=== PATIENT | female | born 1950 | race Caucasian/White ===

== ENCOUNTER → 2018-09-17 10:43 | Outpatient (CLI) | payer MEDICARE | END | disposition home or self-care (01) | LOC: D.US 10:43 | PROVIDERS: ATTEND Family Medicine | DX: I15.0 Renovascular hypertension (principal) ==

== ENCOUNTER 2019-11-13 21:31 | Emergency (ER) | payer MEDICARE ==
[~2019-11-13] VITALS: Ht 165.1 cm; Wt 61.4 kg
[2019-11-13 21:38] VITALS: Ht 165.1 cm; Wt 61.4 kg
[2019-11-13 22:48] LABS: TROPONIN-I < 0.017 ng/mL (0.000-0.060)
[2019-11-13 23:51] VITALS: BP 174/80
== END 2019-11-13 23:45 | disposition home or self-care (01) ==
LOC: D.ER 21:31
PROVIDERS: Surgery
DX: R55 Syncope and collapse (principal); R06.02 Shortness of breath; I10 Essential (primary) hypertension; Z72.0 Tobacco use

== ENCOUNTER 2020-04-01 02:47 | Inpatient (IN) | payer MEDICARE ==
[~2020-04-01] VITALS: Ht 162.6 cm; Wt 66.8 kg
--- NOTE | ~2020-04-01 | HEMODYNAMI ---
PATIENT:HARPAL BILL MEDICAL RECORD: [id number] : 48 LOCATION:[facility] D.[address] [facility]# [id number] ADMISSION DATE: 04/02/20 Generatedon:04/03/202011:58 Patient name: HARPAL BILL Patient #: [id number] SSN: [id number] : 1950 Date of study: 04/03/2020 Page: Of Hemodynamic Procedure Report Patient Data Patient Demographics Procedure consent was obtained First Name: HARPAL Gender: Female Last Name: LANDY : 1950 [facility] Initial: J Age: 69 year(s) Patient #: [id number] Race: SSN: [id number] Additional ID: [id number] Contact details Address: [place] [address] State: [place] City: [place] Zip code: [address] Past Medical History Allergies Allergen Reaction Date Comments Reported Other allergy 04/03/2020 Admission Admission Data Admission Date: 04/02/2020 Admission Time: 17:31 Arrival Date: 04/03/2020 Arrival Time: 0:00 Admit Source: Other Insurance Payor: Private Room #: D.2120 health insurance [facility] #: [id number] Height (in.): 64 BSA: 1.72 (m2) Height (cm.): 162.56 BMI: 25.28 (kg/m2) Weight (lbs.): 147.29 Weight (kg.): 66.81 Lab Results Lab Result Date: 04/03/2020 Lab Result Time: 0:00 Biochemistry Name Units Result Min Max BUN mg/dl 16 --(---*)-- 7 18 Creatinine mg/dl 1 --(--*-)-- 0.6 1.3 eGFR ml/min 58 *-(----)-- 90 120 NONAFRICAN CBC Name Units Result Min Max Hematocrit % 35.9 *-(----)-- 42 54 Hemoglobin g/dl 12 *-(----)-- 13.5 17.5 Procedure Procedure Types Cath Procedure Diagnostic Procedure [facility] w/Coronaries Sedation Charges Moderate Sedation up to 30 minutes Peripheral Cath Diagnostic Procedure Deaf Teacher Peripheral Procedures Four Vessel Arteriogram Procedure Description Procedure Date Procedure Date: 04/03/2020 Procedure Start Time: 11:10 Procedure End Time: 11:30 Procedure Staff Name Function Pily Adolfo RT Scrub Juan Oneal MD Performing Physician Debo Huynh RN Nurse Kirsty Mckenzie RT Monitor Procedure Data Cath Procedure Fluoroscopy Diagnostic fluoroscopy Total fluoroscopy Time: 3.8 time: 3.8 min min Diagnostic fluoroscopy Total fluoroscopy dose: 632 dose: 632 mGy mGy Contrast Material Contrast Material Type Amount (ml) Isovue 370 132 Entry Location Entry Primary Successful Side Size Upsize Upsize Entry Closure Succes sful Closure Location (Fr) 1 (Fr) 2 (Fr) Remarks Device Remarks Femoral Right 5 Fr 6 Fr Exoseal artery Short Estimated blood loss: 10 ml Diagnostic catheters Device Type Used For End Catheter Placement MULTIPACK JL 4.0 5Fr Procedure catheter MULTIPACK 3DRC 5Fr Procedure catheter MULTIPACK Pigtail 5 Fr Procedure catheter Procedure Complications No complications Procedure Medications Medication Administration Route Dosage 0.9% NaCl I.V. 100 ml/hr Lidocaine 2% added to field 20 Heparin Flush Bag added to field 2 bags (1000units/500ml NS) Oxygen NC 2 l/min Benadryl I.V. 50 mg Versed I.V. 1 mg Fentanyl I.V. 50 mcg Versed I.V. 1 mg Fentanyl I.V. 50 mcg Versed I.V. 1 mg Fentanyl I.V. 50 mcg Heparin Bolus I.V. 4000 units Integrilin (Bolus I.V. 6.2 ml 2mg/ml) Plavix P.O. 600 mg Hemodynamics Rest HGB: 12 (g/dl) O2 Consumption: Estimated: 158.69 (ml/min) O2 Consumption indexed : Estimated:92.26 (ml/min/m) Heart Rate: 70 (bpm) Pressure Samples Time Site Value (mmHg) Purpose Heart Use Rate(bpm) 11:18 LV 196/28,34 Snapshot 79 Gradients Valve Time Site Site Mean SEP/DFP Peak To Heart Use 1 2 (mmHg) (sec/min) Peak Rate (mmHg) (bpm) Aortic 11:19 LV AO 80 Snapshots Pre Cath Intra NCS Post Cath Vital Signs Time Heart Resp SPO2 etCO2 NIBP (mmHg) Rhythm Pain Sedation Rate (ipm) (%) (mmHg) Status Level (bpm) 9:26:36 72 23 100 29.5 Measuring NSR 0 (11) 10(A) , No pain 9:27:34 74 23 100 22.7 187/80(112) NSR 0 (11) 10(A) , No pain 9:32:02 71 21 100 29.5 185/79(118) NSR 0 (11) 10(A) , No pain 9:36:26 72 19 100 32.5 179/81(115) NSR 0 (11) 10(A) , No pain 9:40:50 77 19 100 32.5 171/77(118) NSR 0 (11) 10(A) , No pain 9:45:13 81 11 100 37.1 173/78(120) NSR 0 (11) 10(A) , No pain 9:49:35 74 21 100 43.9 157/80(125) NSR 0 (11) 10(A) , No pain 9:53:49 80 19 100 40.1 160/81(116) NSR 0 (11) 10(A) , No pain 9:58:07 77 14 100 37.1 161/78(105) NSR 0 (11) 10(A) , No pain 10:02:25 73 13 100 39.3 160/76(105) NSR 0 (11) 10(A) , No pain 10:06:45 73 15 100 34.8 163/74(111) NSR 0 (11) 10(A) , No pain 10:11:07 72 14 100 36.3 159/73(104) NSR 0 (11) 10(A) , No pain 10:15:25 71 14 100 36.3 165/76(104) NSR 0 (11) 10(A) , No pain 10:19:45 72 14 100 36.3 156/76(101) NSR 0 (11) 10(A) , No pain 10:24:03 69 14 100 27.2 162/73(101) NSR 0 (11) 10(A) , No pain 10:28:25 71 15 100 34.8 160/71(92) NSR 0 (11) 10(A) , No pain 10:32:46 69 14 100 39.3 158/73(103) NSR 0 (11) 10(A) , No pain 10:37:06 69 15 100 34.7 156/75(106) NSR 0 (11) 10(A) , No pain 10:41:24 68 14 100 35.6 160/75(100) NSR 0 (11) 10(A) , No pain 10:45:42 66 14 100 36.3 164/76(105) NSR 0 (11) 10(A) , No pain 10:50:04 69 13 100 35.5 161/72(108) NSR 0 (11) 10(A) , No pain 10:54:00 75 6 100 34.8 126/90(101) NSR 0 (11) 10(A) , No pain 10:58:59 70 14 100 36.3 Measuring NSR 0 (11) 10(A) , No pain 10:59:09 69 14 100 35.5 146/68(100) NSR 0 (11) 10(A) , No pain 11:03:25 74 13 100 37.1 143/67(92) NSR 0 (11) 10(A) , No pain 11:07:37 71 12 99 37.1 156/79(111) NSR 0 (11) 9(A) , No pain 11:11:55 74 5 100 37.1 171/74(122) NSR 0 (11) 9(A) , No pain 11:16:19 86 12 99 40.8 167/75(107) NSR 0 (11) 9(A) , No pain 11:20:39 79 11 100 40.1 160/74(104) NSR 0 (11) 9(A) , No pain 11:25:02 81 9 100 39.3 170/70(104) NSR 0 (11) 9(A) , No pain 11:29:28 85 11 100 37.1 167/64(120) NSR 0 (11) 10(A) , No pain Medications Time Medication Route Dose Verified Delivered Reason Notes Effectiveness by by 9:25:54 0.9% NaCl I.V. 100 Juan Edmondson used for ml/hr St Sudhir Huynh procedure RN 9:26:07 Lidocaine 2% added 20ml Juan Debo for sedation to vial Viola Amina rees MD, RN 9:26:19 Heparin Flush added 2 Juan Debo used for Bag to bags Viola Amina procedure (1000units/500ml field CHEATHAM RN NS) 9:26:35 Oxygen NC 2 Juan Debo for low 02 sats l/min St Sudhir Huynh MD, RN 9:30:09 Benadryl I.V. 50 mg Juan Debo used for Viola Amina procedure MD BURNS 11:02:00 Fentanyl I.V. 50 Juan Debo for sedation mcg St Sudhir Huynh MD, RN 11:02:28 Versed I.V. 1 mg Juan Debo for sedation St Sudhir Huynh MD RN 11:07:28 Versed I.V. 1 mg Juan Debo for sedation St Sudhir Huynh MD, RN 11:07:32 Fentanyl I.V. 50 Juan Debo for sedation mcg St Sudhir Huynh MD, RN 11:13:30 Versed I.V. 1 mg Juan Debo for sedation St Sudhir Huynh MD, RN 11:13:33 Fentanyl I.V. 50 Juan Debo for sedation mcg St Sudhir Huynh MD, RN 11:21:30 Heparin Bolus I.V. 4000 Juan Edmondson verifi ed units [facility] with dr CHEATHAM RN victoria 11:31:14 Integrilin I.V. 6.2 Juan Debo for 3.8 ml (Bolus 2mg/ml) ml Viola Amina anticoagulation wasted MD BURNS 11:31:40 Plavix P.O. 600 Juan Edmondson for mg Viola Amina anticoagulation manager medicare marketing Log Time Note 8:54:09 Informed consent obtained and on chart 8:56:56 Lab Result : Hemoglobin 12 g/dl 8:56:56 Lab Result : Hematocrit 35.9 % 8:56:56 Lab Result : eGFR NONAFRICAN 58 ml/min 8:56:56 Lab Result : BUN 16 mg/dl 8:56:56 Lab Result : Creatinine 1 mg/dl 8:57:37 Arrival Date: 04/03/2020 12:00:00 AM 8:57:38 Admit Source: Other 8:57:39 Insurance Payor : Private health insurance 9:01:07 Patient Height : 64 inches 9:01:32 Patient Weight : 147.29 lbs 9:06:20 Diagnostic Cath Status : Urgent 9:06:39 ACC Patient presents with Stable Angina CCS Anginal Class 2--Slight limitation of ordinary activity. 9:06:43 Procedure Status Urgent Heart Cath (IP). 9:06:45 Time tracking: Regular hours (M-F 7:00 - 5:00) 9:06:50 Plan of Care:Hemodynamics will remain stable., Cardiac rhythm will remain stable., Comfort level will be maintained., Respiratory function will remain adequate., Patient/ family verbilizes understanding of procedure., Procedure tolerated without complication., Recovers from procedure without complications.. 9:06:57 H&P Date Dictated: 04/02/2020 Within 30 days and on chart.. 9:07:02 Patient NPO since Midnight. 9:07:09 Lab results completed and on chart. 9:07:12 Stress Test: no; N/A ? 9:07:15 Sharps counted by scrub and verified by R.N. 9:07:15 Alarms reviewed by R. N. 9:15:00 Pily BROWN(R) sent for patient. Start room use. 9:24:48 Vital chart was started 9:25:54 0.9% NaCl 100 ml/hr I.V. was administered by Debo Huynh RN; used for procedure; Verbal order read back and verified. 9:26:07 Lidocaine 2% 20ml vial added to field was administered by Debo Huynh RN; for sedation; Verbal order read back and verified. 9:26:19 Heparin Flush Bag (1000units/500ml NS) 2 bags added to field was administered by Debo Huynh RN; used for procedure; Verbal order read back and verified. 9:26:35 Oxygen 2 l/min NC was administered by Debo Huynh RN; for low 02 sats; Verbal order read back and verified. 9:30:09 Benadryl 50 mg I.V. was administered by Debo Huynh RN; used for procedure; Verbal order read back and verified. 9:30:23 Patient received from Med II to CCL 2 Alert and oriented. Tansferred to table in Supine position. 9:30:25 Warm blankets applied, and lissa hugger turned on for patient comfort. 9:30:26 ECG and BP/O2 sat monitors applied to patient. 9:30:26 Correct patient and procedure confirmed by team. 9:30:28 Full Disclosure recording started 9:30:30 Pre-op teaching completed and patient verbalized understanding. 9:30:30 Pre-procedure instructions explained to patient. 9:30:34 Family in patients room. 9:30:44 Patient allergic to Other allergy 9:31:02 Is the patient allergic to Iodine/contrast media? No. 9:31:04 Was the patient premedicated? No 9:31:05 Is patient on blood thinner?Yes 9:31:16 pt is on aspirin daily.. 9:31:24 Patient diabetic? No. 9:31:27 If diabetic: On Metformin? N/A 9:31:32 Patient not . Patient is over age 55. 9:31:33 ----Pre-sedation anethsthesia assessment.---- 9:31:42 Previous problem with sedation/anesthesia? No ? 9:31:43 Snore? Yes 9:31:45 Sleep apnea? No 9:31:47 Deviated septum? No 9:31:48 Opens mouth fully? Yes 9:31:49 Sticks out tongue? Yes 9:31:52 Airway obstruction? No ? 9:31:53 Dentures? No ? 9:31:57 Pre procedure: right dorsailis pedis pulse 2+ Normal; easily identifiable; not easily obliterated 9:32:02 Patient pain scale 0/10 ?. 9:32:16 IV patent on arrival in left forearm with 0.9% NaCl at KVO. 9:32:22 Right groin area was prepped with chlora-prep and draped in sterile fashion 9:32:27 Baseline sample Acquired. 9:32:31 Rhythm: sinus rhythm 9:32:38 Use device set Femoral Dx 9:32:40 ACIST Syringe (58016) opened to sterile field. 9:32:41 Medline Cath Pack ([id number]) opened to sterile field. 9:32:41 Bag Decanter () opened to sterile field. 9:32:42 ACIST Hand Control (65586) opened to sterile field. 9:32:43 ACIST Manifold (99759) opened to sterile field. 9:32:44 SHEATH 5FR Hay (RSH058) opened to sterile field. 9:32:44 DIAGNOSTIC Multipack 5Fr catheter set ([id number]) opened to sterile field. 9:32:45 EMERALD Guide Wire (810-770) opened to sterile field. 11:00:00 Procedure delayed due to: other procedure that was unexpected delays in the procedure 11::17 Final Timeout: patient, procedure, and site verified with staff and physician. All members of the team are in agreement. ::17 --------ALL STOP TIME OUT------ 11:01:20 Right groin site verified by team. 11:01:24 Fire Safety Assessment: A--An alcohol-based skin anteseptic being used preoperatively., C--Open oxygen or nitrous oxide is being used., D--An ESU, laser, or fiber-optic light is being used. 11:01:27 Physical assessment completed. ASA score P 2 - A patient with mild systemic disease as per Juan Oneal MD. 11:01:31 3a) 45-59 Moderately reduced kidney function. 11:01:34 Maximum allowable contrast dose (3.7 X eGFR X 0.75)161 ml. 11:01:39 Sedation plan: IV Moderate Sedation Medication:Versed, Fentanyl 11:02:00 Fentanyl 50 mcg I.V. was administered by Debo Huynh RN; for sedation; Verbal order read back and verified. 11:02:28 Versed 1 mg I.V. was administered by Debo Huynh RN; for sedation; Verbal order read back and verified. 11:07:28 Versed 1 mg I.V. was administered by Debo Huynh RN; for sedation; Verbal order read back and verified. 11:07:32 Fentanyl 50 mcg I.V. was administered by Debo Huynh RN; for sedation; Verbal order read back and verified. 11:09:56 Procedure started. 11:10:00 Local anesthetic to right femoral artery with Lidocaine 2% by Juan Oneal MD.INITIAL ACCESS ONLY 11:11:18 JWIRE INSERTED TO GAIN ACCESS WITH SHEATH. 11:11:40 A 5 Fr sheath was inserted into the Right Femoral artery 11:12:03 A MULTIPACK JL 4.0 5Fr catheter was advanced over the wire and used for Procedure. 11:13:30 Versed 1 mg I.V. was administered by Debo Huynh RN; for sedation; Verbal order read back and verified. 11:13:32 LCA angiography performed. 11:13:33 Fentanyl 50 mcg I.V. was administered by Debo Huynh RN; for sedation; Verbal order read back and verified. 11:13:35 Injector settings: Ml/sec: 3, Volume: 6, 11:14:27 Catheter removed. 11:14:33 A MULTIPACK 3DRC 5Fr catheter was advanced over the wire and used for Procedure. 11:15:21 RCA angiography performed. 11:15:24 Injector settings: Ml/sec: 3, Volume: 6, 11:16:39 Right carotid angiography performed. 11:16:41 Left carotid angiography performed. 11:17:49 Left subclavian angiography performed 11:17:53 Left vertibrle L angiography performed. 11:18:33 Catheter exchanged over wire. 11:18:38 A MULTIPACK Pigtail 5 Fr catheter was advanced over the wire and used for Procedure. 11:18:57 LV gram done using MORELAND 11:19:01 Injector settings: Ml/sec: 10, Volume: 20, 11:19:05 LV hemodynamics recorded. 11:19:13 EF : 55 % 11:19:16 Catheter removed. 11:19:24 Use device set RICHFIELD PCI 11:19:25 SHEATH 6FR Hay (RAV834) opened to sterile field. 11:19:26 INFLATOR Merit BasixCompak (LC9705) opened to sterile field. 11:19:36 BMW 300cm [place] 2 J wire ([id number]) opened to sterile field. 11:19:42 ACC Pre-intervention ALYSSA Flow is 3. 11:19:46 Pre PCI Site: [place] pLAD has 80% stenosis. 11:19:53 Sheath upsized to a 6 Fr Short. 11:20:42 GUIDE 6FR XBLAD 3.5 catheter ([id number]) opened to sterile field. 11:21:12 6 Fr xblad 3.5 guide catheter was inserted over the wire 11:21:24 BMW 300 wire advanced. 11:21:30 Heparin Bolus 4000 units I.V. was administered by Debo Huynh RN; ; verified with dr oneal Verbal order read back and verified. 11:23:13 Wire advanced across lesion. 11:25:31 Place stent Inflation Number: 1 A COURTNEY RX 2.5 x 15 stent ([id number]) was prepped and advanced across the Mid LAD 80. The stent was deployed at 14 CORETTA for 0:00 (min:sec) . 11::43 EXOSEAL 6Fr (EX600) opened to sterile field. 11::48 Wire removed. 11::48 Stent catheter was removed intact over wire. 11::49 Guide catheter removed. 11:27:05 Sheath removed intact; hemostasis achieved with Exoseal to the Right Femoral artery. 11:27:08 Procedure ended.(Physican Out) ::30 Fluoroscopy time 03.80 minutes. ::33 Fluoroscopy dose: 632 mGy 11::33 Flurop Dose total: 632 11::43 Dose Area Product 79642 mGy/cm. 11::47 Contrast amount:Isovue 370 132ml. 11:27:50 Maximum allowable dose exceeded? No. 11::51 Sharps counted by scrub and verified by R.N. 11:28:00 Post Procedure Pulses reassessed and unchanged 11:28:05 Post procedure: right dorsailis pedis pulse 2+ Normal; easily identifiable; not easily obliterated. 11:28:11 Post-procedure physical assessment completed. ASA score P 2 - A patient with mild systemic disease as per Juan Oneal MD. 11:28:14 Post procedure rhythm: unchanged. 11::19 Estimated blood loss: 10 ml 11::53 Post procedure instruction explained to patient.Patient verbalizes understanding. 11::54 Patient needs reinforcement of post procedure teaching. 11:30:12 Procedure type changed to Cath procedure, Diagnostic procedure, LHC, LHC w/Coronaries, Sedation Charges, Moderate Sedation up to 30 minutes, Peripheral Cath Diagnostic Procedure, Deaf Teacher Peripheral Procedures, Four Vessel Arteriogram 11::14 Procedure and supply charges have been captured, reviewed, submitted and are correct. 11::19 Procedure Complication : No complications 11::23 Vital chart was stopped 11::26 [facility] Findings: MVD- PCI performed (see procedure note) :: ACT drawn and resulted at out fo range seconds. (normal therapeutic range 180-240 seconds). 11:30:29 Operative report dictated upon procedure completion. 11:30:30 See physician's report for complete and final results. 11:30:34 Report given to [facility]. 11:30:37 Patient transfered to [facility] with Bed. 11:30:39 Full Disclosure recording stopped 11:30:39 Procedure ended. 11:30:52 ACC-PCI Only Patient was given prescriptions, or instructed by Juan Oneal MD to start/continue the following medications upon discharge: Plavix 11:30:53 End room use (Document Last) 11:31:14 Integrilin (Bolus 2mg/ml) 6.2 ml I.V. was administered by Debo Huynh RN; for anticoagulation; 3.8 ml wasted Verbal order read back and verified. 11:31:40 Plavix 600 mg P.O. was administered by Debo Huynh RN; for anticoagulation; Verbal order read back and verified. 11:35:18 End room use (Document Last) 11:35:53 End room use (Document Last) 11:42:47 Femstop placed over the right femoral artery at 140 mmHg. Hemostasis achieved. Intervention Summary Intervention Notes Time ActionType Lesion and Equipment Used Action# Pressure Duration Attributes 11:25:31 Place stent Mid LAD COURTNEY RX 2.5 x 1 14 00:00 15 stent ([id number]) Device Usage Item Name Manufacture Quantity Catalog [facility] Lot# / Number Charge Number Stock Stock Serial# Code ACIST Syringe Acist 1 99185 712900 836221 151648 20 (07812) Medical Systems Inc Bag Decanter Microtek 1 041996 41982 586269 5 (2001S) Medical Inc. Medline Cath Medline 1 [id number] 616966 31617 006234 5 Pack ([id number]) ACIST Hand Acist 1 47905 993642 898820 583709 5 Control Medical (14470) Systems Inc ACIST Manifold Acist 1 67208 758804 190127 140765 5 (61349) Medical Systems Inc DIAGNOSTIC Cardinal 1 CT4425 754629 84956 351804 30 Multipack 5Fr Health catheter set (HU5581) SHEATH 5FR Terumo 1 RWT507 236081 513664 019342 5 Hay (JLV865) EMERALD Guide Cardinal 1 649-455 834966 620278 454741 5 Wire (502455) Health MULTIPACK JL Cardinal 1 032958 5 4.0 5Fr Health catheter MULTIPACK 3DRC Cardinal 1 410451 5 5Fr catheter Health MULTIPACK Cardinal 1 952481 5 Pigtail 5 Fr Health catheter SHEATH 6FR Terumo 1 WCL538 110373 338426 439204 40 Hay (OZR628) INFLATOR Merit Merit 1 GE3741 540931 769298 242821 15 BasixCompak Medical (TN9839) BMW 300cm [place] 1 [id number] 182676 285750 597042 5 [place] 2 J Vascular wire ([id number]) GUIDE 6FR Cardinal 1 [id number] 153281 978123 105876 10 XBLAD 3.5 Health catheter ([id number]) COURTNEY RX 2.5 x Medtronic 1 [id number] 402733 8096119 843899 5 [id number] 15 stent ([id number]) EXOSEAL 6Fr Cardinal 1 EX600 502862 553967 022646 10 (EX600) Health Signature Audit Counselor Stage Time Signature Unsigned Intra-Procedure 04/03/2020 Kirsty Mckenzie 11:35:18 AM RT(R) Intra-Procedure 04/03/2020 Debo 11:35:53 AM Amina BURNS Intra-Procedure 04/03/2020 Juan Oneal MD 11:36:59 AM Sudhir CHEATHAM 04/03/2020 11:39:01 AM Intra-Procedure 04/03/2020 Kirsty Mckenzie 11:42:59 AM RT(R) Intra-Procedure 04/03/2020 Juan Turk 11:43:13 AM Sudhir CHEATHAM [facility] [address] [place] [address]
[2020-04-01] MEDS ORDERED: DROXIA200 MG PO (03:03)
[2020-04-01] MEDS ORDERED: FEXMID7.5 MG PO (03:03)
[2020-04-01] MEDS ORDERED: TIROSINT13 MCG PO (03:03)
[2020-04-01] MEDS ORDERED: LISINOPRIL2.5 MG (03:03)
[2020-04-01] MEDS ORDERED: PROZAC10 MG PO (03:04)
[2020-04-01] MEDS ORDERED: CATAPRES0.1 MG PO (03:04)
[2020-04-01 03:33] LABS: BASOPHILS 0.3 % (0-2); BILIRUBIN NEGATIVE (NEGATIVE); HEMATOCRIT 40.3 % (36.0-48.0); HEMOGLOBIN 13.9 g/dL (12-16); IMMATURE GRANULOCYTES 0.3 % (0-5); KETONE NEGATIVE (NEGATIVE); LYMPHOCYTES 32.5 % (15-50); MCH 37.6 pg (26.0-34.0); MCHC 34.5 g/dL (31.0-37.0); MCV 108.9 fL (80.0-100.0); MEAN PLATELET VOLUME 9.2 fL (7.4-10.4); MONOCYTES 7.1 % (2-11); NEUTROPHILS 57.8 % (40-80); NITRITE NEGATIVE (NEGATIVE); PLATELET COUNT 412 10x3/uL (130-400); RDW 12.4 % (11.5-14.5); UROBILINOGEN NORMAL mg/dL (< 2); WBC 11.3 10x3/uL (4.8-10.8)
[2020-04-01 03:37] LABS: CALC OSMOLALITY 274 mosm/kg (275-300); CALCIUM 8.7 mg/dL (8.5-10.1); CARBON DIOXIDE 26.3 mmol/L (21.0-32.0); CHLORIDE - SERUM 101 mmol/L (98-107); GLUCOSE 124 mg/dL (74-106); SODIUM 137 mmol/L (136-145); UREA NITROGEN 13 mg/dL (7-18); eGFR NON AFRICAN AMERICAN 58 mL/min (90-120)
[2020-04-01 03:43] LABS: ALBUMIN 3.9 g/dL (3.4-5.0); ALKALINE PHOSPHATASE 82 U/L (30-120); ALT (SGPT) 19 U/L (10-68); AMYLASE - SERUM 58 U/L (25-115); BILIRUBIN - TOTAL 0.29 mg/dL (0.2-1.3); LIPASE 142 U/L (73-393)
[2020-04-01 03:44] LABS: TROPONIN-I < 0.017 ng/mL (0.000-0.060)
[2020-04-01 03:50] VITALS: BP 134/50
[2020-04-01 03:58] LABS: APTT 27.8 SECONDS (22.8-39.4); INR 0.98 (0.85-1.17)
[2020-04-01 04:13] LABS: CKMB 1.3 U/L (0.0-3.6); CREATINE KINASE 90 UL (21-215)
[2020-04-01 04:40] VITALS: BP 153/54
--- NOTE | 2020-04-01 07:00 | NUR ---
received report from eduarda bass
[2020-04-01 07:35] LABS: C-REACTIVE PROTEIN 0.3 mg/dL (0.0-0.9); CKMB 1.3 U/L (0.0-3.6); CREATINE KINASE 69 UL (21-215); FERRITIN 92 ng/mL (3-244)
--- NOTE | 2020-04-01 07:45 | NUR ---
pt provided with breakfast tray
[2020-04-01 07:52] LABS: TROPONIN-I < 0.017 ng/mL (0.000-0.060)
[2020-04-01 10:19] VITALS: BP 152/64
--- NOTE | 2020-04-01 12:00 | NUR ---
pt provided with lunch tray
[2020-04-01 12:34] LABS: CKMB 1.2 U/L (0.0-3.6); CREATINE KINASE 75 UL (21-215); TROPONIN-I 0.025 ng/mL (0.000-0.060)
[2020-04-01 13:04] VITALS: BP 155/70
[2020-04-01] MEDS ORDERED: PROTONIX40 MG PO (14:16)
[2020-04-01] MEDS ORDERED: BAYER CHEWABLE81 MG PO (14:18)
[2020-04-01] MEDS ORDERED: NORVASC10 MG PO (14:18)
[2020-04-01] MEDS ORDERED: LEVOXYL50 MCG PO (14:23)
[2020-04-01] MEDS ORDERED: PROZAC40 MG PO (14:24)
[2020-04-01] MEDS ORDERED: CYCLOBENZAPRINE10 MG PO (14:25)
[2020-04-01] MEDS ORDERED: HYDROXYUREA500 MG GT (14:26)
[2020-04-01] MEDS ORDERED: CATAPRES0.2 MG PO (14:27)
[2020-04-01] MEDS ORDERED: LISINOPRIL40 MG PO (14:28)
--- NOTE | 2020-04-01 14:44 | NUR ---
called report to griffin bass at this time.
--- NOTE | 2020-04-01 15:15 | NUR ---
RECEIVED PT TO ROOM 2119 VIA WHEELCHAIR, PT A/O X4, RESP EVEN AND NONLABORED ON RA. DENIES ANY PAIN AT THIS TIME. ORIENTED PT TO ROOM AND CALL LIGHT, LT AC INFUSING NS AT 50CC/HR. WILL ASSESS PT AND START PLAN OF CARE.
[2020-04-01 15:45] VITALS: BP 182/57; Ht 162.6 cm; Wt 66.8 kg
--- NOTE | 2020-04-01 15:45 | NUR ---
CALLED PHARMACY AND SPOKE TO IESHA, INFORMED HIM THAT I NEEDS HYDREA FOR PT.
[2020-04-01 19:30] LABS: CKMB 1.7 U/L (0.0-3.6); CREATINE KINASE 80 UL (21-215)
[2020-04-01 19:41] LABS: TROPONIN-I 0.103 ng/mL (0.000-0.060)
--- NOTE | 2020-04-01 20:18 | NUR ---
INITIAL REPORT AND ROUNDS COMPLETED. SEE ASSESSMENTS. PT RESTING IN BED WITH NO DISTRESS. CALL LIGHT IN REACH. CPOC.
[2020-04-01 21:42] VITALS: BP 129/51
[2020-04-02 01:49] VITALS: BP 143/63
[2020-04-02 05:39] VITALS: BP 147/63
[2020-04-02 06:54] LABS: BASOPHILS 0.2 % (0-2); HEMATOCRIT 33.3 % (36.0-48.0); HEMOGLOBIN 11.2 g/dL (12-16); IMMATURE GRANULOCYTES 0.2 % (0-5); LYMPHOCYTES 24.2 % (15-50); MCH 36.7 pg (26.0-34.0); MCHC 33.6 g/dL (31.0-37.0); MCV 109.2 fL (80.0-100.0); MEAN PLATELET VOLUME 8.9 fL (7.4-10.4); MONOCYTES 7.5 % (2-11); NEUTROPHILS 63.9 % (40-80); RBC 3.05 10x6/uL (4.00-5.40); RDW 12.4 % (11.5-14.5)
[2020-04-02 07:03] LABS: PLATELET COUNT 284 10x3/uL (130-400); WBC 5.5 10x3/uL (4.8-10.8)
--- NOTE | 2020-04-02 07:11 | NUR ---
REPORT TO ONCOMING NURSE. PT RESTING WITH NO DISTRESS. NO CHANGE FROM INITIAL SHIFT ASSESSMENT. CPOC. CALL LIGHT IN REACH.
[2020-04-02 07:15] LABS: CALC OSMOLALITY 278 mosm/kg (275-300); CALCIUM 8.1 mg/dL (8.5-10.1); CARBON DIOXIDE 23.2 mmol/L (21.0-32.0); CHLORIDE - SERUM 108 mmol/L (98-107); CREATININE - SERUM 0.8 mg/dL (0.6-1.3); GLUCOSE 94 mg/dL (74-106); POTASSIUM - SERUM 3.8 mmol/L (3.5-5.1); SODIUM 140 mmol/L (136-145); UREA NITROGEN 12 mg/dL (7-18); eGFR NON AFRICAN AMERICAN 75 mL/min (90-120)
[2020-04-02 08:18] VITALS: BP 132/69
--- NOTE | 2020-04-02 09:18 | NUR ---
AM MEDS GIVEN WITH A SIP OF WATER. PT STILL NPO UNTIL SEEN BY CARDIOLOGY. PT DENIES ANY NEEDS AT THIS TIME. CALL LIGHT IN REACH, AT BEDSIDE, NAD NOTED, WILL CONTINUE PLAN OF CARE.
[2020-04-02 11:25] VITALS: BP 163/61
--- NOTE | 2020-04-02 14:03 | MORECARE ---
CASE MANAGEMENT DISCHARGE SUMMARY PATIENT: HARPAL RICE UNIT: [id number] ADM DATE: 04/01/20 AGE: 69 : 49 SEX: F ROOM/BED: D.0 AUTHOR: MORIAH GROSS PHYSICIAN: REFERRING PHYSICIAN: LUIS CARLOS LOPEZ MD DATE OF SERVICE: 04/02/20 Discharge Plan Patient Name: HARPAL RICE Facility: [facility]:[place] : 1950 Planned Disposition: Anticipated Discharge Date: Discharge Date: Expected LOS: Initial Reviewer: [email or web address] Initial Review Date: 04/01/2020 Generated: 04/02/20 3:03 pm External Providers External Provider: [employer] Next Contact Date: Service Request Date: Service Type: Resolution: Reviewer: Comments: Coverage Notice Reviewer: [email or web address] Gail Walsh Notice Issued Date-Time: 04/01/2020 16:54 Notice Type: Medicare Outpatient Observation Notice Notice Delivered To: Patient Relationship to Patient: Self Ship'S Pilot Name: Sekou Rice Delivery Method: HAND - Hand Delivered Gena Days: Prior Verbal Notification: Recipient Understood Notice: Yes Recipient Signature: Yes Med Rec Note Co-signed by Attending: Coverage Notice Comment: CHEATHAM signed/given to patient. Original to chart. Patient Name: HARPAL RICE Page [id number] at 1403 All edits/amendments must be made on the electronic document DICTATION DATE: 04/02/20 140 JACK SETTER: SHELLEY 04/02/20 1403 RPT#: [id number] DC DATE: STATUS: ADM IN [facility] [address] [place] [address] END OF REPORT
--- NOTE | 2020-04-02 14:37 | NUR ---
PT RESTING COMFORTABLY IN BED, DENIES ANY NEEDS AT THIS TIME. CALL LIGHT IN REACH,NAD NOTED, WILL CONITUE TO MONITOR.
[2020-04-02 21:30] VITALS: BP 146/57
[2020-04-03 04:35] VITALS: BP 131/46
[2020-04-03 07:36] LABS: ANION GAP 9.9 mmol/L (8-16); CALCIUM 8.7 mg/dL (8.5-10.1); CARBON DIOXIDE 28.3 mmol/L (21.0-32.0); POTASSIUM - SERUM 4.2 mmol/L (3.5-5.1)
[2020-04-03 07:47] LABS: BASOPHILS 0.2 % (0-2); EOSINOPHILS 3.1 % (0-7); HEMATOCRIT 35.9 % (36.0-48.0); LYMPHOCYTES 21.9 % (15-50); MCH 36.6 pg (26.0-34.0); MCHC 33.4 g/dL (31.0-37.0); MCV 109.5 fL (80.0-100.0); MEAN PLATELET VOLUME 8.9 fL (7.4-10.4); NEUTROPHILS 67.8 % (40-80); PLATELET COUNT 259 10x3/uL (130-400); RBC 3.28 10x6/uL (4.00-5.40); RDW 12.2 % (11.5-14.5); WBC 5.6 10x3/uL (4.8-10.8)
--- NOTE | 2020-04-03 09:04 | NUR ---
AM MEDS GIVEN AT THIS TIME WITH A SIP OF WATER. LT AC IV NO PATENT. D/C IV WITH CATHETER TIP INTACT, NEW 20G IV STARTED TO LT FA X1 STICK. PT TOLERATED WELL. DENEIS ANY NEEDS AT THIS TIME. CALL LIGHT IN REACH, AT BEDSIDE, WILL CONTINUE PLAN OF CARE.
--- NOTE | 2020-04-03 09:15 | NUR ---
PT TO PAN DEVULCANIZER HELPER.
[2020-04-03 09:34] LABS: CHOL - HDL RATIO 4.9 ratio (2.3-4.1); LDL-HDL RATIO 3.2 ratio (1.5-3.5)
[2020-04-03 12:00] VITALS: BP 128/59
--- NOTE | 2020-04-03 12:07 | NUR ---
RECEIVED PT BACK TO ROOM, PT A/O X4. VITAL SIGNS STABLE, RT GROIN DRESSING CDI, FEMSTOP IN PLACE. NO S/S OF BLEEDING OR HEMATOMA. PROVIDED PT WITH COFFEE AND ICE WATER. PT DENIES ANY OTHER NEEDS AT THIS TIME.CALL LIGHT IN REACH, NAD NOTED, WILL CONTINUE TO MONITOR.
--- NOTE | 2020-04-03 14:40 | NUR ---
NO CHANGES TO RT GROIN, REMOVED PRESSURE FROM FEMSTOP. PT C/O OF ABD PAIN THAT RADIATES TO CHEST. GAVE 650MG OF TYLENOL.
[2020-04-03] MEDS ORDERED: PLAVIX75 MG PO (16:10)
--- NOTE | 2020-04-03 16:46 | NUR ---
PROVIDED VERBAL AND WRITTEN DISCHARGE TEACHING TO PT, WHO VERBALIZED UNDERSTANDING REGARDING TEACHING. D/C LT FA IV WITH CATHETER TIP INTACT. HEART MONITOR REMOVED AND TAKEN TO PERSONAL ATTENDANT. PT LEFT UNIT VIA WHEELCHAIR WITH ALL BELONGINGS, NAD NOTED.
--- NOTE | 2020-04-03 17:54 | MORECARE ---
CASE MANAGEMENT DISCHARGE SUMMARY PATIENT: HARPAL RICE UNIT: [id number] ADM DATE: 04/02/20 AGE: 69 : [birth year] SEX: F ROOM/BED: D.1176 AUTHOR: MORIAH GROSS PHYSICIAN: REFERRING PHYSICIAN: CECILIA SHEARER MD DATE OF SERVICE: 04/03/20 Discharge Plan Patient Name: HARPAL RICE Facility: [facility]:[place] : 1950 Planned Disposition: Home Anticipated Discharge Date: 04/03/20 Discharge Date: 04/03/2020 Expected LOS: 1 Initial Reviewer: [id number] Initial Review Date: 04/01/2020 Generated: 04/03/20 6:53 pm Coverage Notice Reviewer: [id number] Gail Walsh Notice Issued Date-Time: 04/01/2020 16:54 Notice Type: Medicare Outpatient Observation Notice Notice Delivered To: Patient 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 Original to chart. Last DP export: 04/02/20 1:03 p Patient Name: HARPAL RICE Page [id number] at 1754 All edits/amendments must be made on the electronic document DICTATION DATE: 04/03/201753 DELIVERY RN: SHELLEY 04/03/201753 RPT#: [id number] DC DATE:04/03/20 STATUS: DIS IN [facility] [address] [place] [address] END OF REPORT
--- NOTE | 2020-04-04 08:59 | CN ---
PATIENT NAME:HARPAL BILL MEDICAL RECORD: [id number] : 48 LOCATION:[facility] D.2120 ADMIT DATE: 04/02/20 ACCOUNT: [id number] CONSULTING PHYSICIAN: JOSE ELIAS HORTA MD REFERRING PHYSICIAN: CECILIA SHEARER MD DATE OF CONSULTATION: 04/02/2020 HISTORY OF PRESENT ILLNESS: A 69-year-old female with no known history of coronary artery disease, has a history of hypertension, hyperlipidemia, had onset of chest pain, diaphoresis and nausea, that radiated to the abdomen yesterday, profuse nausea and diaphoresis. She has been feeling somewhat unwell for the past week or so. Subsequently found to have an ECG and elevated cardiac enzymes. We are asked to see her concerning her cardiovascular status. PAST MEDICAL HISTORY: Includes: 1. History of hypertension. 2. Hyperlipidemia. 3. Syncope. 4. 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 5. Hypothyroidism, on replacement. MEDICATIONS: Synthroid 50 mcg daily, Protonix 40 mg p.o. daily, Prozac 20 mg p.o. day, aspirin 81 every day, clonidine 0.2 q.6, lisinopril 40 b.i.d., amlodipine 10 every day, and Flexeril 10 t.i.d. SOCIAL HISTORY: Smokes about a pack a day. Social drinker. Occasional marijuana use. No set exercise program. ALLERGIES: No known allergies. REVIEW OF SYSTEMS: The patient reports easy bruising but reports no swollen glands. The patient reports no fever, no night sweats, no significant weight gain, no significant weight loss. No significant exercise tolerance. The patient reports no dry eyes, no irritation, no vision change. Patient reports no difficulty hearing and no ear pain. Patient reports no frequent nose bleeds or nose and sinus problems. Patient reports on arm pain on exertion. No shortness of breath while lying down. No history of heart murmur. Patient reports no cough, no wheezing or coughing up blood. Patient reports no abdominal pain, no vomiting. Normal appetite. No diarrhea and not vomiting blood. No nausea and no constipation. Patient reports no incontinence. No difficulty urinating. No hematuria. No increased frequency. Patient reports no muscle aches. No weakness, no arthralgias, no back pain. No swelling of the extremities. Patient reports no abnormal mole, no jaundice, no rashes. Reports no loss of consciousness. No weakness and no numbness. No seizures, dizziness, or headaches. The patient reports no depression, no sleep disturbance, feeling safe in a relationship and no alcohol abuse. Patient reports on fatigue. Reports no runny nose or sinus pressure. No itching, no hives, and no frequent sneezing. PHYSICAL EXAMINATION: GENERAL: Middle-aged, no acute distress. VITAL SIGNS: Blood pressure 163/61, pulse 69 and regular. HEENT: Normocephalic, atraumatic. NECK: No JVD or bruit. HEART: Regular. CONSULT REPORT [id number] HARPAL BILL LUNGS: Good air excursion. ABDOMEN: Soft, nontender. EXTREMITIES: Pulses 2+. There is no edema. DIAGNOSTIC DATA: EKG is abnormal with poor R-wave progression. IMPRESSION: Acute coronary syndrome/NSTEMI. Reports unilateral left-sided weakness with visual changes consistent amaurosis over the past week or so as well. PLAN: We will plan for diagnostic angiography, 4-vessel arteriography in the same setting. TRANSINT:[id number] Voice Confirmation ID: [id number] DOCUMENT ID: [id number] JOSE ELIAS HORTA MD at 0859 CC: [id number] DICTATION DATE: 04/02/20 1221 MAINTENANCE GROUNDSKEEPER: 04/03/20 0020 DIS IN 04/03/20 [id number] [place] [address]
--- NOTE | 2020-04-04 08:59 | OP ---
PATIENT NAME: HARPAL BILL MEDICAL RECORD: [id number] :[birth year] LOCATION:D.M2 D.2120 ADMISSION DATE:04/02/20 SURGEON: JOSE ELIAS HORTA MD DATE OF OPERATION: 04/03/2020 PROCEDURE: Left heart catheterization, selective coronary angiography plus 4-vessel arteriography plus selective left subclavian injection, right femoral artery approach. CATHETERS: A 5-Icelandic sheath, 5/4 left and right Shaniqua, 5/4 pig. The procedure was well tolerated. We proceeded immediately to PTCA stenting to the LAD. FINDINGS: Left ventriculography in 30-degree MORELAND view: Normal wall motion. Normal systolic function. CORONARY ANATOMY: LEFT MAIN: Has a 90% stenosis, appears to be culprit vessel. CIRCUMFLEX: Has 80% stenosis, a smallish vessel. RIGHT CORONARY ARTERY: Has a long diffuse 80% stenosis. FOUR-VESSEL ARTERIOGRAPHY: The right common carotid was selectively engaged and this showed a common carotic smooth-walled vessel, free of disease. Right external carotid, luminal irregularities, but no focal stenosis. Right internal carotid is a small vessel, free of disease. Next, the catheter withdrawn to the left common carotid that shows small vessel, free of disease. Left external carotid, small vessel, free of disease. Left internal carotid, small vessel, free of disease. Before attempting to engage the left internal carotid during injection of the subclavian, we happened to notice a questionable stenosis of the left vertebral artery and this was confirmed with injection of the left subclavian, which showed an 80% left vertebral. INTERVENTION TO LEFT ANTERIOR DESCENDING: A 5-Icelandic sheath was exchanged for a 6-Icelandic sheath. XB LAD guide catheter provided excellent guide catheter support followed by 300 cm Whisper wire, which was placed across a tightly occluded LAD down to this portion of vessel. Stent deployed was 2.5 x 15 mm Morro drug-eluting stent up to 14 atmospheres. Final angiography shows excellent resolution of 90% stenosis. No significant residual. ALYSSA flow was 3 throughout the procedure. Sheath closed with ExoSeal device. Heparin was loaded in the lab. NTS:[id number] Voice Confirmation ID: [id number] DOCUMENT ID: [id number] JOSE ELIAS HORTA MD at 0859 CC: [id number] DICTATION DATE: 04/03/20 1143 TRANSCRIPTION COORDINATOR: 04/03/20 215 DIS IN 04/03/20 [facility] [address] [place] [id number]
== END 2020-04-03 16:47 | disposition home or self-care (01) | DRG 247 ==
LOC: D.ER 02:47 → D.EDHOLD 06:20 → D.M2 06:20 → OBSVTIME 06:20 → D.M2 09:23 → D.EDHOLD 10:39 → D.M2 13:11
PROVIDERS: Family Medicine; Internal Medicine Interventional Cardiology; ADMIT Family Medicine; ATTEND Family Medicine
PROC: B2111ZZ Fluoroscopy of Multiple Coronary Arteries using Low Osmolar Contrast (ICD-10-PCS; 2020-04-03)
PROC: B2151ZZ Fluoroscopy of Left Heart using Low Osmolar Contrast (ICD-10-PCS; 2020-04-03)
PROC: B3151ZZ Fluoroscopy of Bilateral Common Carotid Arteries using Low Osmolar Contrast (ICD-10-PCS; 2020-04-03)
PROC: B3181ZZ Fluoroscopy of Bilateral Internal Carotid Arteries using Low Osmolar Contrast (ICD-10-PCS; 2020-04-03)
PROC: B31C1ZZ Fluoroscopy of Bilateral External Carotid Arteries using Low Osmolar Contrast (ICD-10-PCS; 2020-04-03)
PROC: 027034Z Dilation of Coronary Artery, One Artery with Drug-eluting Intraluminal Device, Percutaneous Approach (ICD-10-PCS; principal; 2020-04-03 09:00)
PROC: 4A023N7 Measurement of Cardiac Sampling and Pressure, Left Heart, Percutaneous Approach (ICD-10-PCS; 2020-04-03 09:00)
DX: I21.4 Non-ST elevation (NSTEMI) myocardial infarction (principal); R55 Syncope and collapse; R07.9 Chest pain, unspecified; E03.9 Hypothyroidism, unspecified; E78.5 Hyperlipidemia, unspecified; I10 Essential (primary) hypertension; F17.200 Nicotine dependence, unspecified, uncomplicated; I25.119 Atherosclerotic heart disease of native coronary artery with unspecified angina pectoris; H54.7 Unspecified visual loss

== ENCOUNTER 2020-04-12 07:29 | Day surgery (SDC) | payer MEDICARE ==
[~2020-04-12] VITALS: Ht 162.6 cm; Wt 67.3 kg
--- NOTE | ~2020-04-12 | HEMODYNAMI ---
PATIENT:HARPAL BILL MEDICAL RECORD: [id number] : 48 LOCATION:[facility] ADMISSION DATE: 04/12/20 Generatedon:04/12/20209:50 Patient name: HARPAL BILL Patient #: [id number] SSN: [id number] : 1950 Date of study: 04/12/2020 Page: Of Hemodynamic Procedure Report Patient Data Patient Demographics Procedure consent was obtained First Name: HARPAL Gender: Female Last Name: LANDY : 1950 [facility] Initial: J Age: 69 year(s) Patient #: [id number] Race: SSN: [id number] Additional ID: [id number] Contact details [address]: [address] [place] [address] State: [place] City: [place] Zip code: [address] Past Medical History History of disease Date Diagnosis Comments CAD Allergies Allergen Reaction Date Comments Reported Other allergy 04/03/2020 Admission Admission Data Admission Date: 04/12/2020 Admission Time: 7:29 Arrival Date: 04/12/2020 Arrival Time: 0:00 Height (in.): 63.78 BSA: 1.72 (m2) Height (cm.): 162 BMI: 25.53 (kg/m2) Weight (lbs.): 147.71 Weight (kg.): 67 Lab Results Lab Result Date: 04/12/2020 Lab Result Time: 0:00 Biochemistry Name Units Result Min Max BUN mg/dl 19 --(----)*- 7 18 Creatinine mg/dl 0.9 --(-*--)-- 0.6 1.3 eGFR ml/min 66 *-(----)-- 90 120 NONAFRICAN CBC Name Units Result Min Max Hematocrit % 34.8 *-(----)-- 42 54 Hemoglobin g/dl 11.8 *-(----)-- 13.5 17.5 Procedure Procedure Types Cath Procedure Diagnostic Procedure Sedation Charges Moderate Sedation up to 15 minutes PCI Procedure Coronary Stent Coronary Stent Initial Hemochron ACT Test Procedure Description Procedure Date Procedure Date: 04/12/2020 Procedure Start Time: 9:34 Procedure End Time: 9:48 Procedure Staff Name Function Juan Oneal MD Performing Physician Sue Ervin RT Monitor Melissa Mendieta RT Scrub Rad Sanchez RN Nurse Procedure Data Cath Procedure Fluoroscopy Diagnostic fluoroscopy Total fluoroscopy Time: 1.3 time: 1.3 min min Diagnostic fluoroscopy Total fluoroscopy dose: 129 dose: 129 mGy mGy Contrast Material Contrast Material Type Amount (ml) Isovue 300 34 Entry Location Entry Primary Successful Side Size Upsize Upsize Entry Closure Succes sful Closure Location (Fr) 1 (Fr) 2 (Fr) Remarks Device Remarks Femoral Left 6 Fr Exoseal artery Short Estimated blood loss: 10 ml Procedure Complications No complications Procedure Medications Medication Administration Route Dosage 0.9% NaCl I.V. 100 ml/hr Oxygen etCO2 Nasal cannula 2 l/min Heparin Flush Bag added to field 2 bags (1000units/500ml NS) Lidocaine 2% added to field 20 Versed I.V. 2 mg Fentanyl I.V. 100 mcg Versed I.V. 1 mg Heparin Bolus I.V. 5000 units Hemodynamics Rest BSA: 1.72 (m2) HGB: 11.8 (g/dl) O2 Consumption: Estimated: 162.2 (ml/min) O2 Con sumption indexed: Estimated:94.3 (ml/min/m) Heart Rate: 76 (bpm) Snapshots Pre Cath Intra NCS Post Cath Vital Signs Time Heart Resp SPO2 etCO2 NIBP (mmHg) Rhythm Pain Sedation Rate (ipm) (%) (mmHg) Status Level (bpm) 9:13:07 78 13 100 31.5 188/82(130) NSR 0 (11) 10(A) , No pain 9:17:38 79 16 100 32.3 176/74(124) NSR 0 (11) 10(A) , No pain 9:22:00 81 16 100 36.8 171/84(120) NSR 0 (11) 10(A) , No pain 9:26:24 82 16 100 34.6 172/74(117) NSR 0 (11) 10(A) , No pain 9:30:46 80 16 100 31.5 168/80(125) NSR 0 (11) 10(A) , No pain 9:35:06 82 28 100 39 170/82(126) NSR 0 (11) 10(A) , No pain 9:39:26 88 14 99 30.8 171/84(126) NSR 0 (11) 10(A) , No pain 9:44:46 90 16 100 197/93(151) NSR 0 (11) 10(A) , No pain Medications Time Medication Route Dose Verified Delivered Reason Notes Effectiveness by by 9:14:15 0.9% NaCl I.V. 100 Rad Rad Per physician ml/hr Daniel Sanchez RN RN 9:14:25 Oxygen etCO2 2 Rad Rad for low 02 sats Nasal l/min Daniel Sanchez cannula RN RN 9:14:36 Heparin Flush added 2 Rad Rad used for Bag to bags Daniel Sanchez procedure (1000units/500ml field RN RN NS) 9:14:48 Lidocaine 2% added 20ml Rad Rad for local to vial Daniel Sanchez anesthetic field RN RN 9:34:08 Versed I.V. 2 mg Rad Rad for sedation Daniel Sanchez RN RN 9:34:17 Fentanyl I.V. 100 Rad Rad for sedation mcg Daniel Sanchez RN RN 9:35:54 Versed I.V. 1 mg Rad Rad for sedation Daniel Sanchez RN RN 9:38:16 Heparin Bolus I.V. 5000 Rad Rad for units Daniel Sanchez anticoagulation RN bartenders Log Time Note 8:21:14 Informed consent obtained and on chart 8:21:41 Procedure Status Elective Heart Cath (OP). 8:21:42 Time tracking: Regular hours (M-F 7:00 - 5:00) 8:21:45 Plan of Care:Hemodynamics will remain stable., Cardiac rhythm will remain stable., Comfort level will be maintained., Respiratory function will remain adequate., Patient/ family verbilizes understanding of procedure., Procedure tolerated without complication., Recovers from procedure without complications.. 8:36:54 Procedure type changed to Cath procedure, Diagnostic procedure, Sedation Charges, Moderate Sedation up to 15 minutes, PCI procedure, Coronary Stent, Coronary Stent Initial, Hemochron ACT Test 8:41:39 H&P Date Dictated: 04/11/2020 Within 30 days and on chart., H&P Addendum completed by physician on day of procedure. (MUST COMPLETE FOR ALL OUTPATIENTS). 8:59:09 Melissa Mendieta RT(R) sent for patient. Start room use. 9:02:42 Lab Result : BUN 19 mg/dl 9:: Lab Result : Creatinine 0.9 mg/dl 9::42 Lab Result : eGFR NONAFRICAN 66 ml/min 9::42 Lab Result : Hemoglobin 11.8 g/dl 9:: Lab Result : Hematocrit 34.8 % 9:03:22 Patient Weight : 147.71 lbs 9:03:25 Patient Height : 63.78 inches 9:03:29 Arrival Date: 04/12/2020 12:00:00 AM 9:04:10 Patient received from Pre/Post Procedure Room to CCL 2 Alert and oriented. Tansferred to table in Supine position. 9:04:11 Warm blankets applied, and lissa hugger turned on for patient comfort. 9:04:11 Correct patient and procedure confirmed by team. 9:04:12 ECG and BP/O2 sat monitors applied to patient. 9:10:32 Vital chart was started 9:11:27 Baseline sample Acquired. 9:11:32 Rhythm: sinus rhythm 9:11:33 Full Disclosure recording started 9:11:41 Pre-procedure instructions explained to patient. 9:11:44 Family in patients room. 9:11:46 Patient NPO since Midnight. 9:12:01 Was the patient premedicated? Yes 9:12:03 Is patient on blood thinner?Yes 9:12:06 ACC The patient was administered the following blood thiners within the last 24 hours: ACCPlavix 9:12:08 Patient diabetic? No. 9:12:13 Snore? Yes 9:12:15 Sleep apnea? No 9:12:20 Dentures? No ? 9:12:26 Patient pain scale 0/10 ?. 9:12:35 IV patent on arrival in left forearm with 0.9% NaCl at KVO. 9:12:39 Lab results completed and on chart. 9:12:44 Left groin area was prepped with chlora-prep and draped in sterile fashion 9:12:45 Alarms reviewed by R. N. 9:12:45 Sharps counted by scrub and verified by R.N. 9:12:50 Physician paged 9:14:15 0.9% NaCl 100 ml/hr I.V. was administered by Rad Sanchez RN; Per physician; Verbal order read back and verified. 9:14:25 Oxygen 2 l/min etCO2 Nasal cannula was administered by Rad Sanchez RN; for low 02 sats; Verbal order read back and verified. 9:14:36 Heparin Flush Bag (1000units/500ml NS) 2 bags added to field was administered by Rad Sanchez RN; used for procedure; Verbal order read back and verified. 9:14:48 Lidocaine 2% 20ml vial added to field was administered by Rad Sanchez RN; for local anesthetic; Verbal order read back and verified. 9:23:48 Zero performed for pressure channel P1 9:32:35 Physician arrived 9:32:35 --------ALL STOP TIME OUT------ 9:32:36 Final Timeout: patient, procedure, and site verified with staff and physician. All members of the team are in agreement. 9:32:38 Left groin site verified by team. 9:32:41 Fire Safety Assessment: A--An alcohol-based skin anteseptic being used preoperatively., C--Open oxygen or nitrous oxide is being used., D--An ESU, laser, or fiber-optic light is being used. 9:32:45 Physical assessment completed. ASA score P 3 - A patient with severe systemic disease as per Juan Oneal MD. 9:32:51 2) 60-89 Mildly reduced kidney function, and other findings (as for stage 1) point to kidney disease. 9:32:58 Maximum allowable contrast dose (3.7 X eGFR X 0.75)183 ml. 9:33:03 Sedation plan: IV Moderate Sedation Medication:Versed, Fentanyl 9:33:10 Use device set Femoral Dx 9:33:12 ACIST Syringe (79916) opened to sterile field. 9:33:12 Bag Decanter () opened to sterile field. 9:33:13 Medline Cath Pack ([id number]) opened to sterile field. 9:33:16 ACIST Hand Control (61771) opened to sterile field. 9:33:16 ACIST Manifold (46522) opened to sterile field. 9:33:21 EMERALD Guide Wire (502-940) opened to sterile field. 9:33:51 GUIDE 6FR [place] 1.0 catheter ([id number]) opened to sterile field. 9:33:51 BMW 300cm [place] 2 J wire ([id number]) opened to sterile field. 9:33:52 INFLATOR Merit BasixCompak (YP9114) opened to sterile field. 9:34:01 SHEATH 6FR [place] (UBZ562) opened to sterile field. 9:34:06 Procedure started. 9:34:08 Versed 2 mg I.V. was administered by Rad Sanchez RN; for sedation; Verbal order read back and verified. 9:34:11 Local anesthetic to left femerol artery with Lidocaine 2% by Juan Oneal MD.INITIAL ACCESS ONLY 9:34:17 Fentanyl 100 mcg I.V. was administered by Rad Sanchez RN; for sedation; Verbal order read back and verified. 9:35:17 A 6 Fr Short sheath was inserted into the Left Femoral artery 9:35:54 Versed 1 mg I.V. was administered by Rad Sanchez RN; for sedation; Verbal order read back and verified. 9:36:31 Pre PCI Site: [place] mRCA has 80% stenosis. 9:36:40 6 Fr AR1 guide catheter was inserted over the wire 9:38:02 BMW wire advanced. 9:38:16 Heparin Bolus 5000 units I.V. was administered by Rad Sanchez RN; for anticoagulation; Verbal order read back and verified. 9:40:29 Place stent Inflation Number: 1 A COURTNEY OTW 3.5 x 30 stent ([id number]) was prepped and advanced across the Mid RCA 80. The stent was deployed at 14 CORETTA for 0:25 (min:sec) 0. 9:41:56 EXOSEAL 6Fr (EX600) opened to sterile field. 9:42:11 Stent catheter was removed intact over wire. 9:42:11 Wire removed. 9:42:12 Guide catheter removed. 9:45:15 Sheath removed intact; hemostasis achieved with Exoseal to the Left Femoral artery. 9:45:17 Procedure ended.(Physican Out) 9:45:37 ACT drawn and resulted at 240 seconds. (normal therapeutic range 180-240 seconds). 9:45:39 Fluoroscopy time 01.30 minutes. 9:45:47 Fluoroscopy dose: 129 mGy 9:45:47 Flurop Dose total: 129 9:45:52 Dose Area Product 7098 mGy/cm. 9:45:56 Contrast amount:Isovue 300 34ml. 9:45:58 Maximum allowable dose exceeded? No. 9:46:00 Sharps counted by scrub and verified by R.N. 9:46:03 Insertion/operative site no bleeding no hematoma. 9:46:07 Post-op/insertion site Left Femoral artery dressed using a 4 x 4 and Tegaderm. 9:46:09 Post Procedure Pulses reassessed and unchanged 9:46:13 Post-procedure physical assessment completed. ASA score P 3 - A patient with severe systemic disease as per Juan Oneal MD. 9:46:15 Post procedure rhythm: unchanged. 9:46:57 Estimated blood loss: 10 ml 9:46:59 Post procedure instruction explained to patient.Patient verbalizes understanding. 9:47:30 Procedure and supply charges have been captured, reviewed, submitted and are correct. 9:47:52 Procedure Complication : No complications 9:47:57 Vital chart was stopped 9:48:00 [facility] Findings: MVD- PCI performed (see procedure note) 9:48:09 Operative report dictated upon procedure completion. 9:48:09 See physician's report for complete and final results. 9:48:11 Report given to Pre/Post Procedure Room. 9:48:14 Procedure ended. 9:48:14 Full Disclosure recording stopped 9:48:19 End room use (Document Last) 9:48:25 ACC-PCI Only Patient was given prescriptions, or instructed by Juan Oneal MD to start/continue the following medications upon discharge: Plavix 9:48:28 Patient transfered to Pre/Post Procedure Room with Stretcher. Intervention Summary Intervention Notes Time ActionType Lesion and Equipment Action# Pressure Duration Attributes Used 9:40:29 Place stent Mid RCA COURTNEY OTW 3.5 1 14 00:25 x 30 stent ([id number]) Device Usage Item Name Manufacture Quantity Catalog Hospital Part Current Mini mal Lot# / Number Charge Number Stock Stock Serial# Code ACIST Syringe Acist 1 30403 378998 590349 [id number] 20 (04693) Medical Systems Inc Bag Decanter Microtek 1 2001S 872372 99944 906827 5 (2001S) Medical Inc. Medline Cath Medline 1 [id number] 375070 13291 070960 5 Pack ([id number]) ACIST Hand Acist 1 13947 372950 902139 361302 5 Control Medical (64259) Systems Inc ACIST Acist 1 18141 020654 082859 485881 5 Manifold Medical (05496) Systems Inc EMERALD Guide Cardinal 1 502-455 582202 297235 472467 5 Wire [facility] (502455) GUIDE 6FR [place] Medtronic 1 [id number] 338260 44430 350262 1 1.0 catheter ([id number]) BMW 300cm [place] 1 [id number] 116722 195975 796736 5 [place] 2 J Vascular wire ([id number]) INFLATOR Merit 1 [id number] 788469 300822 017555 15 [facility] Medical BasixCompak (LE5146) SHEATH 6FR Terumo 1 [id number] 683368 487693 534460 40 [place] (QIO155) COURTNEY OTW 3.5 Medtronic 1 [id number] 389959 6281942 025287 5 [id number] x 30 stent ([id number]) EXOSEAL 6Fr Cardinal 1 EX600 336690 552357 560479 10 (EX600) Health Signature Audit [place] Stage Time Signature Unsigned Intra-Procedure 04/12/2020 Sue Ervin 9:48:45 AM RT(R) Intra-Procedure 04/12/2020 Rad 9:49:45 AM Daniel BURNS Intra-Procedure 04/12/2020 Juan Turk 9:50:06 AM Sudhir CHEATHAM Signatures Performing Physician : Signature : Juan Oneal MD Date : Time : Monitor : Sue Ervin Signature : RT Date : Time : Nurse : Rad Lorigan Signature : RN Date : Time : [facility] [address] [place] [address]
[~2020-04-12 07:29] MED LIST: BAYER CHEWABLE81 MG PO; CATAPRES0.1 MG PO; CATAPRES0.2 MG PO; CYCLOBENZAPRINE10 MG PO; DROXIA200 MG PO; FEXMID7.5 MG PO; HYDROXYUREA500 MG PO; LEVOXYL50 MCG PO; LISINOPRIL2.5 MG; LISINOPRIL40 MG PO; NORVASC10 MG PO; PLAVIX75 MG PO; PROTONIX40 MG PO; PROZAC10 MG PO; PROZAC40 MG PO; TIROSINT13 MCG PO
[2020-04-12 08:03] VITALS: BP 157/61; Ht 162.6 cm; Wt 67.3 kg
[2020-04-12 08:09] LABS: BASOPHILS 0.4 % (0-2); EOSINOPHILS 2.5 % (0-7); HEMATOCRIT 34.8 % (36.0-48.0); HEMOGLOBIN 11.8 g/dL (12-16); IMMATURE GRANULOCYTES 0.2 % (0-5); LYMPHOCYTES 19.7 % (15-50); MCH 37.2 pg (26.0-34.0); MCHC 33.9 g/dL (31.0-37.0); MCV 109.8 fL (80.0-100.0); MEAN PLATELET VOLUME 8.6 fL (7.4-10.4); MONOCYTES 7.7 % (2-11); NEUTROPHILS 69.5 % (40-80); PLATELET COUNT 293 10x3/uL (130-400); RBC 3.17 10x6/uL (4.00-5.40); RDW 13.1 % (11.5-14.5); WBC 4.8 10x3/uL (4.8-10.8)
[2020-04-12 08:37] LABS: ANION GAP 10.6 mmol/L (8-16); CALCIUM 8.6 mg/dL (8.5-10.1); CARBON DIOXIDE 28.6 mmol/L (21.0-32.0); CHOL - HDL RATIO 4.5 ratio (2.3-4.1); CREATININE - SERUM 0.9 mg/dL (0.6-1.3); LDL-HDL RATIO 3.1 ratio (1.5-3.5); POTASSIUM - SERUM 4.2 mmol/L (3.5-5.1)
--- NOTE | 2020-04-12 10:03 | NUR ---
PT RECEIVED VIA STRETCHER FROM CONSULTING SOFTWARE ENGINEER FOR RECOVERY. PT AWAKE BUT DROWSY, DENIES PAIN OR DISCOMFORT. IV PATENT INFUSING VIA L ARM PER ORDERS. L GROIN W 6FR EXOCELE, DRESSING CDI NO S/S HEMATOMA OR BLEEDING. LEG PINK AND WARM, PEDAL PULSES PALPABLE. PT INSTRUCTED TO KEEP HEAD ON PILLOW AND LEG STRAIGHT, SHE VERBALIZED UNDERSTANDING. PT PLACED ON CARDIAC MONITORS, HR NSR RATE 82, BP 192/77, RR 17, SAT 99 ON ROOM AIR. CALL LIGHT IN REACH, DAUGHTER AT BS
--- NOTE | 2020-04-12 10:30 | NUR ---
PT SLEEPING, VSS AT PRESENT. L GROIN SOFT, DRESSING REMAINS CDI NO S/S HEMATOMA NOTED. CALL LIGHT IN REACH, DAUGHTER AT BS.
--- NOTE | 2020-04-12 10:43 | HP ---
PATIENT: HARPAL RICE MEDICAL RECORD: [id number] ACCOUNT: [id number] LOCATION:[facility] : [birth year] ADMISSION DATE: 04/12/20 PCP: CECILIA SHEARER MD HISTORY AND PHYSICAL EXAMINATION HISTORY OF PRESENT ILLNESS: Harpal Rice is a 69-year-old female with a history of coronary artery disease, status post intervention to the LAD. She has a marked residual stenosis of the right coronary. She is being brought back for intervention. PAST MEDICAL HISTORY: Includes: 1. History of hypertension. 2. Hyperlipidemia. 3. Progression of disease with a left vertebral artery stenosis. PHYSICAL EXAMINATION: GENERAL: Pleasant, in no acute distress, appears stated age. HEENT: Normocephalic, atraumatic. NECK: No JVD or bruit. HEART: Regular. LUNGS: Good air excursion. ABDOMEN: Soft, nontender. EXTREMITIES: Pulses 2+. PLAN: Intervention of the right this admission. TRANSINT:[id number] Voice Confirmation ID: [id number] DOCUMENT ID: [id number] JOSE ELIAS HORTA MD at 1043 CC: [id number] DICTATION DATE: 04/11/20 1239 CONSOLE MANAGER: 04/11/20 [address] [place] [id number]
--- NOTE | 2020-04-12 11:15 | NUR ---
PT RESTING COMFORTABLY, L GROIN SOFT, DRESSING CDI NO S/S HEMATOMA OR BLEEDING NOTED. VSS, CALL LIGHT IN REACH
--- NOTE | 2020-04-12 11:45 | NUR ---
PT STILL SLEEPING, DENIES PAIN OR NEEDS. L GROIN SOFT, DRESSING CDI NO S/S HEMATOMA. PT TOLERATING PO FLUIDS. CALL LIGHT IN REACH
--- NOTE | 2020-04-12 12:15 | NUR ---
PT CONTINUES RESTING W/O COMPLAINTS. L GROIN SOFT, DRESSING CDI NO S/S HEMATOMA OR BLEEDING. CALL LIGHT IN REACH, VSS
--- NOTE | 2020-04-12 12:48 | NUR ---
L GROIN SOFT, NO S/S HEMATOMA. HOB ELEVATED, SANDWICH AND DRINK SERVED. NO OTHER NEEDS REQUESTED
--- NOTE | 2020-04-12 13:15 | NUR ---
L GROIN SOFT, DRSSING REMAINS CDI NO S/S HEMATOMA OR BLEEDING. PT DENIES PAIN OR NEEDS AT THIS TIME. VSS AT PRESENT. CALL LIGHT IN REACH. PT TOLERATED LUNCH W/O DIFFICULITY.
--- NOTE | 2020-04-12 13:36 | NUR ---
PT AMBULATED TO BR, VOIDING W/O DIFFICULITY.
--- NOTE | 2020-04-12 13:45 | NUR ---
DISCHARGE INSTRUCTIONS REVIEWED W PT AND DAUGHTER, BOTH VERBALIZED UNDERSTANDING. IV REMOVED W CATH INTACT. R GROIN REMAINS SOFT, NO S/S HEMATOMA. 1350 PT DISCHARGE VIA WC TO DAUGHTER WAITING IN PRIVATE VEHICLE. PT HAD ALL BELONGINGS AND DISCHARGE PAPERWORK
--- NOTE | 2020-04-14 12:15 | OP ---
PATIENT NAME: HARPAL BILL MEDICAL RECORD: [id number] :48 LOCATION:[facility] ADMISSION DATE: SURGEON: JOSE ELIAS HORTA MD DATE OF OPERATION: 04/12/2020 PROCEDURE: PTCA stent. DESCRIPTION OF PROCEDURE: After a 6-[place] sheath was placed in left femoral artery, AR1 guiding catheter provided excellent guide catheter support followed by a 300 cm BMW wire was placed across the tightly occluded 80% stenosis right down this portion of vessel, diffuse stenosis, so we used long 3.5 [place] drug-eluting stent up to 14 atmospheres for 45 seconds. Final angiography shows excellent resolution of 80% stenosis, no significant residual. ALYSSA flow was 3 throughout the procedure. The patient was previously on Plavix. Heparin was used during the case. Sheath was closed with ExoSeal device. TRANSINT:[id number] Voice Confirmation ID: [id number] DOCUMENT ID: [id number] JOSE ELIAS HORTA MD at 1215 CC: [id number] DICTATION DATE: 04/12/20 0953 CHISEL GRINDER: 04/12/20 1244 [facility] 04/12/20 [facility] [address] [place] [address]
== END 2020-04-12 13:50 | disposition home or self-care (01) ==
LOC: D.CATH 07:29
PROVIDERS: ATTEND Internal Medicine Interventional Cardiology
DX: I25.10 Atherosclerotic heart disease of native coronary artery without angina pectoris (principal); R07.9 Chest pain, unspecified; R55 Syncope and collapse; Z20.828 Contact with and (suspected) exposure to other viral communicable diseases; I10 Essential (primary) hypertension; E78.5 Hyperlipidemia, unspecified; I65.02 Occlusion and stenosis of left vertebral artery

== ENCOUNTER → 2020-12-07 13:13 | Outpatient (CLI) | payer OTHER ==
[2020-08-22 12:48] VITALS: BMI 25.0
[~2020-12-07 13:13] MED LIST changes: +LOSARTAN-HCTZ1 EAC1 PO; +NITROQUICK0.4 MG SL; +PRAVACHOL40 MG PO
== END | disposition home or self-care (01) ==
LOC: D.US 13:13
PROVIDERS: ATTEND Internal Medicine Interventional Cardiology
DX: I65.23 Occlusion and stenosis of bilateral carotid arteries (principal)

== ENCOUNTER → 2020-12-08 09:40 | Outpatient (CLI) | payer OTHER ==
[2020-08-22 12:48] VITALS: BMI 25.0
== END | disposition home or self-care (01) ==
LOC: D.HCCARDIO 09:40
PROVIDERS: ATTEND Internal Medicine Cardiovascular Disease
DX: I25.10 Atherosclerotic heart disease of native coronary artery without angina pectoris (principal)